=== PATIENT | male | born 1995 | race Two or more races ===

== ENCOUNTER 2018-03-21 07:44 | Emergency (ER) | payer SELFPAY ==
[~2018-03-21] VITALS: Ht 165.1 cm; Wt 61.2 kg
[2018-03-21 08:02] VITALS: BP 117/75
== END 2018-03-21 08:56 | disposition home or self-care (01) ==
LOC: ER 07:44
DX: M25.571 Pain in right ankle and joints of right foot (principal); V43.52XA Car driver injured in collision with other type car in traffic accident, initial encounter; Y93.89 Activity, other specified; Y99.8 Other external cause status; Y92.410 Unspecified street and highway as the place of occurrence of the external cause
CPT/HCPCS: 73600

== ENCOUNTER 2019-11-24 09:23 | Emergency (ER) | payer OTHER ==
[~2019-11-24] VITALS: Ht 165.1 cm; Wt 59.0 kg
[2019-11-24 11:22] VITALS: BP 132/81
[2019-11-24] MEDS ORDERED: TETANUS-DIPTH-ACEL PERTUSSIS 0.5ML SYR Tdap IM ONE (11:45)
== END 2019-11-24 12:32 | disposition home or self-care (01) ==
LOC: ER 09:23
DX: S61.012A Laceration without foreign body of left thumb without damage to nail, initial encounter (principal); W22.8XXA Striking against or struck by other objects, initial encounter; Y93.89 Activity, other specified; Y92.89 Other specified places as the place of occurrence of the external cause; Y99.0 Civilian activity done for income or pay
CPT/HCPCS: 12002; 73130; 90471; 90715

== ENCOUNTER 2023-01-20 12:55 | Emergency (ER) | payer OTHER ==
[~2023-01-20] VITALS: Ht 167.6 cm; Wt 66.0 kg
[2023-01-20 14:30] VITALS: BP 129/60; PULSE 67; RESP 18; O2SAT 97
[2023-01-20] MEDS ORDERED: LIDOCAINE 1% HCL (LOCAL ANESTH.) INJ 20ML MDV IJ ONE (14:45)
[2023-01-20] MEDS ORDERED: cefTRIAXone SOD 1,000 MG VL IM ONE (15:15)
[2023-01-20] MEDS ORDERED: cefTRIAXone SOD 1,000 MG VL ONE (15:18)
[2023-01-20] MEDS ORDERED: IBUP-1456 PO (15:25)
[2023-01-20] MEDS ORDERED: CEPH500C PO (15:25)
== END 2023-01-20 15:27 | disposition home or self-care (01) ==
LOC: ER 12:55
DX: S62.665A Nondisplaced fracture of distal phalanx of left ring finger, initial encounter for closed fracture (principal); W22.8XXA Striking against or struck by other objects, initial encounter; Y93.89 Activity, other specified; Y92.69 Other specified industrial and construction area as the place of occurrence of the external cause; Y99.8 Other external cause status
CPT/HCPCS: 29130; 73140; 96372; 99283; J0696; J2001